=== PATIENT | female | born 1985 | race Caucasian/White ===

== ENCOUNTER 2022-09-30 07:43 | Outpatient (CLI) | payer BC, SELFPAY ==
--- NOTE | ~2022-09-30 | MMUS_ITS ---
EXAMINATION: MM diagnostic samreen BI w stu, US breast BI complete HISTORY: Palpable breast lump TECHNIQUE: Additional 3-D tomosynthesis images of the breasts were performed and synthetic 2-D images were generated. CAD analysis was submitted and interpreted. High resolution complete bilateral breas t ultrasound was performed. COMPARISON: None BREAST PARENCHYMAL COMPOSITION: The breasts are heterogeneously dense, which may obscure small masses FINDINGS: MAMMOGRAPHIC FINDINGS: The breasts are heterogeneously dense, which may obscure small masses. No discrete masses, calcificat ions or architectural distortion are identified in either breast to suggest malignancy. ULTRASOUND: Complete bilateral US of all 4 quadrants of the breasts and retroareolar region was reviewed. Right breast: At 2:00, 3 cm from the nipple, there is an oval hypoechoic mass measuring 4 mm without internal vascularity or posterior features. There is parallel orientation. At 7:00, 4 cm from the nip ple there is an irregular shaped hypoechoic mass measuring 6 x 6 x 4 mm. There is an adjacent 8 mm hy poechoic mass with slightly irregular margins. No internal vascularity or posterior features and 8. T hese masses. At 10:00, 5 cm from the nipple, there is an oval hypoechoic or low oriented mass without posterior features or internal vascularity measuring 4 mm. There are the areola there is a 4 mm cyst . Left breast: At 6:00, 3 cm from the nipple, there is a 3 mm cyst. At 8:00, 6 cm from the nipple there is an antiparallel hypoechoic mass with some angular margins measuring 5 x 4 x 4 mm without internal vascularity or significant posterior features. IMPRESSION: 1. Abnormal bilateral breast masses located at 7:00, 4 cm from the nipple in the right breast and 8:0 0, 6 cm from the nipple in the left breast. 2. Bilateral ultrasound-guided breast biopsies recommended. BI-RADS category 4, suspicious findings. Reviewed, dictated and finalized at location A. IMPRESSION: 1. Abnormal bilateral breast masses located at 7:00, 4 cm from the nipple in th e right breast and 8:00, 6 cm from the nipple in the left breast. 2. Bilateral ultrasound-guided breast biopsies recommended. BI-RADS category 4, suspicious findings.
== END 2022-09-30 07:44 ==
PROVIDERS: PCP Nurse Practitioner; Visit Provider Nurse Practitioner
DX: N63.13 Unspecified lump in the right breast, lower outer quadrant (principal); N63.24 Unspecified lump in the left breast, lower inner quadrant
CPT/HCPCS: 76641; 77062; 77066; G0279

== ENCOUNTER 2023-10-24 16:43 | Emergency (ER) | payer BC, SELFPAY ==
--- NOTE | ~2023-10-24 | XR_ITS ---
EXAMINATION: XR chest 2V Exam Date/Time: 10/24/2023 17:30 CDT HISTORY: cough and congestion, pain R side with breathing Comparison: None. RESULT: Lines, tubes, and devices: None. Lungs and pleura: Clear. Cardiomediastinal silhouette: Normal. Other: No acute osseous or upper abdominal finding. IMPRESSION: No acute cardiopulmonary process. Reviewed, dictated and finalized at location K.
[2023-10-24 16:53] VITALS: BP 108/60; PULSE 87; RESP 16; TEMP 37.1; O2SAT 99
--- NOTE | 2023-10-24 17:19 | ED.URI ---
HPI - URI/Sore Throat General Chief Complaint: Upper Respiratory Infection Stated Complaint: body hurts,fever,nauseated Time Seen by Provider: 10/24/23 17:19 Source: patient Mode of arrival: ambulatory Limitations: no limitations History of Present Illness HPI Narrative: 38-year-old female presents with nasal congestion, cough, sore throat, body aches, fatigue, low-grade fever since yesterday afternoon. Taking DayQuil NyQuil cold and flu with little relief of symptoms. Denies nausea vomiting diarrhea. Patient reports right-sided lung pain when taking deep breath. All systems reviewed and negative except as noted above. Related Data Home Medications Medication Instructions Recorded Confirmed norethindrone (contraceptive) 0.35 0.35 mg PO DAILY 10/24/23 10/24/23 mg tablet Allergies Allergy/AdvReac Type Severity Reaction Status Date / Time Sulfa (Sulfonamide Allergy Severe Swelling Verified 10/24/23 16:49 Antibiotics) Review of Systems Review of Systems: CONSTITUTIONAL: reports fever, fatigue. Denies chills, or sweats. EYES: Denies visual changes, redness, or discharge. ENT: Reports rhinorrhea, congestion, sore throat. Denies otalgia. CARDIOVASCULAR: Denies chest pain, palpitations, or edema. RESPIRATORY: reports cough. Reports dyspnea. GASTROINTESTINAL: Denies abdominal pain, nausea, vomiting, or diarrhea. GENITOURINARY: Denies dysuria or hematuria. SKIN: Denies rash or itching. MUSCULOSKELETAL: Denies back pain, joint pain, or myalgia. NEUROLOGIC: Denies headache, numbness, or weakness. PSYCHIATRIC: Denies anxiety or depression. All other systems reviewed are negative, except as documented in HPI. PMFSH Comments At time of signature, agree with nursing past medical, surgical, social and family history. There is no relevant family history pertinent to the presenting complaint. Exam Narrative: GENERAL: This is a well-nourished, well-developed patient, in no apparent distress. HEAD: normocephalic, atraumatic. EYES: PERRL. Sclera clear/white. Vision is grossly intact. EARS: External ears normal, auditory canals clear and without drainage, TMs normal without perforation. Hearing grossly intact. NOSE: External nose normal with clear nasal drainage, mild congestion. THROAT: Mucous membranes moist, Mild erythema postnasal drainage NECK: Neck supple, non-tender without lymphadenopathy, masses or thyromegaly. CARDIOVASCULAR: Regular rate and rhythm without murmurs, gallops, or rubs. RESPIRATORY: Clear to auscultation. Breath sounds equal bilaterally. No wheezes, rales, or rhonchi. SKIN: warm, Dry, intact with no suspicious lesions or rash, good texture and turgor. NEURO: awake, alert, and oriented to person, place and time. There were no obvious focal neurologic abnormalities. EXTREMITIES: No joint tenderness, effusion, or edema noted. Course Course Level of Care: Express Care Visit Vital Signs Vital signs: Vital Signs Temperature 37.1 C 10/24/23 16:53 Pulse Rate 87 10/24/23 16:53 Respiratory Rate 16 10/24/23 16:53 Blood Pressure 108/60 10/24/23 16:53 Pulse Oximetry 99 10/24/23 16:53 Oxygen Delivery Room Air 10/24/23 16:53 Temperature 37.1 C 10/24/23 16:53 Pulse Rate 87 10/24/23 16:53 Respiratory Rate 16 10/24/23 16:53 Blood Pressure 108/60 10/24/23 16:53 Pulse Oximetry 99 10/24/23 16:53 Oxygen Delivery Room Air 10/24/23 16:53 reviewed MDM - URI/Sore Throat MDM Narrative Medical decision making narrative: Patient is aware of diagnosis, understands and agrees to treatment plan. Anticipatory guidance given. Patient agrees to follow-up as directed and is aware of reasons to seek care at the emergency department. Portions of this record may have been created with voice recognition software Differential Diagnosis Differential diagnosis: Likely upper respiratory infection, sinusitis and viral infection Imaging Data My impression:
== END 2023-10-24 18:20 | disposition home or self-care (01) ==
PROVIDERS: Emergency Provider Nurse Practitioner Family
DX: J06.9 Acute upper respiratory infection, unspecified (principal)
CPT/HCPCS: 71046; 87081; 87804; 87880; 99213; G0463